=== PATIENT | female | born 1990 | race Caucasian/White ===

== ENCOUNTER 2023-02-12 20:04 | Emergency (ER) | payer BC, OTHER ==
[2023-02-12] MEDS ORDERED: GUAI-671 PO (21:49)
[2023-02-12 22:05] VITALS: BP 116/70; O2SAT 99
== END 2023-02-12 22:02 | disposition home or self-care (01) ==
LOC: ER 20:16
DX: R04.2 Hemoptysis (principal)
CPT/HCPCS: 71045-TC